=== PATIENT | female | born 1945 | race Caucasian/White ===

== ENCOUNTER → 2023-06-04 12:51 | Outpatient (REF) | payer MEDICARE, SELFPAY ==
--- NOTE | 2023-06-04 12:58 | CA_ITS ---
Transthoracic Echocardiogram Patient (Last, First, Middle): Michelle Cormier, Gender: Female Date of : 1945 Age: 78 Procedure Date: 06/04/2023 Procedure Type: Transthoracic Echocardiogram Location: [facility] Height: 172.72 cm Weight: 84.82 kg BSA: 1.99 m2 Heart Rate: bpm BP: 135 / 70 mmHg Admissions Advisor: BANG Referring MD: REGGIE GASCA Symptoms: R00.2 PALPITATIONS Study Quality: Fair ECG Rhythm: Sinus with PVC Conclusions: - The left ventricular systolic function is mildly decreased. The visually estimated ejection fraction is between 45-50%. - The basal inferior segment is akinetic. - There is mild calcification of the aortic valve. - There is mild mitral annular calcification. Findings Left Ventricle Normal left ventricular cavity size. There is normal left ventricular wall thickness. The left ventricular systolic function is mildly decreased. The visually estimated ejection fraction is between 45-50%. Evidence suggests grade I (mild) diastolic dysfunction. Wall Motion Rest Echo Findings The basal inferior segment is akinetic. Right Ventricle Normal right ventricular cavity size and systolic function. Atria Both atria are normal in size. Aortic Valve There is a normal trileaflet aortic valve. There is mild calcification of the aortic valve. There is no aortic valve regurgitation. No significant stenosis. Mitral Valve The mitral valve appears normal. There is mild mitral annular calcification. There is trace mitral valve regurgitation. There is no mitral valve stenosis. Pulmonic Valve There is trace pulmonic valve regurgitation. Tricuspid Valve There is trace tricuspid valve regurgitation. There is no evidence of pulmonary hypertension. Great Vessels The asc aorta is normal in size. Venous The inferior vena cava is mildly dilated and collapses greater than 50% with inspiration. Pericardium/Pleural There is no evidence of pericardial effusion. Prior Study Comparison Changes noted compared to prior study dated: 05/19/2021. Slight decrease in LVEF. Measurements 2D Linear Measurements IVSd: 0.80 0.6-0.9/0.6-1.0 cm LVIDd: 4.70 3.9-5.3/4.2-5.9 cm LVIDd Index: 2.36 2.4-3.2/2.2-3.1 cm/m2 LVIDs: 3.70 2.0-3.6 cm LVPWd: 0.90 0.7-1.1 cm LA Diam: 2.90 2.7-3.8/3.0-4.0 cm LAIDs Index: 1.46 1.5-2.3 cm/m2 LV Mass: 164.65 67-162/88-224 g LV Mass Index: 82.74 43-95/49-115 g/m2 LVOT Diam: 2.00 3.0+(-)1.3 cm 2D Systolic Function EF 4C: 48.80 >55% EF 2C: 62.60 >55% EF BiP: 55.90 >55% Mitral Valve MV Pk E: 0.49 MV PK A: 0.74 MV Decel Time: 192.00 E/A: 0.70 E'Lateral: 7.07 E'Medial: 4.35 E/E' Med: 11.30 E/E' Lat: 6.90 PHT: 56.00 MVA PHT: 3.93 Decel [place]: 2.55 Aortic Valve AoV Pk Danny: 1.81 AoV Mn Danny: 1.27 AoV VTI: 0.39 AoV Pk Grad: 13.00 Aov Mn Grad: 7.00 GABINO Cont.VTI: 1.71 LVOT LVOT Pk Danny: 1.03 LVOT Mn Danny: 0.74 LVOT VTI: 0.21 LVOT Pk Grad: 4.00 LVOT Mn Grad: 2.00 LVOT Diam: 2.00 LVOT Area: 3.14 Diastolic Function MV Pk E: 0.49 MV Pk A: 0.74 E/A: 0.70 E'Medial: 4.35 E/E' Med: 11.30 E' Laterial: 7.07 E/E' Lat: 6.90 Right Ventricle TAPSE (mm): 26.50 TVS' Danny: 14.90 Tricuspid Valve TR Pk Danny: 2.34 TR Pk Grad: 22.00 Great Vessels Aorta Sinus of Valsalva: 3.30 2.0-3.[address] [place]: 2.90 1.7-3.4 cm Ao Asc: 3.30 2.1-3.4 cm Updated in Other Vendor System with Status of Final Etienne Wright MD electronically signed on 06/04/2023 2:16:00 PM with status of Final
== END ==
LOC: HO.CARD 12:51
PROVIDERS: PCP Family Medicine; Visit Provider Family Medicine
DX: R00.2 Palpitations (principal)
CPT/HCPCS: 93306

== ENCOUNTER → 2023-06-04 12:58 | Outpatient (BNV) | payer MEDICARE, SELFPAY | PROVIDERS: PCP Family Medicine; Visit Provider Internal Medicine | DX: I34.81 Nonrheumatic mitral (valve) annulus calcification (principal); I35.8 Other nonrheumatic aortic valve disorders | CPT/HCPCS: 93306 ==